=== PATIENT | female | born 2000 | race Caucasian/White ===

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

== ENCOUNTER → 2020-01-10 11:18 | Outpatient (CLI) | payer BC, SELFPAY ==
[2020-01-10 15:14] LABS: Urine N gonorrhoeae NOT DETECTED
[2020-01-10 15:15] LABS: Urine Chlamydia NOT DETECTED
== END ==
PROVIDERS: PCP Family Medicine; Visit Provider Family Medicine
DX: Z11.3 Encounter for screening for infections with a predominantly sexual mode of transmission (principal); Z11.8 Encounter for screening for other infectious and parasitic diseases
CPT/HCPCS: 87491; 87591

== ENCOUNTER → 2020-04-16 14:39 | Outpatient (CLI) | payer BC, SELFPAY | PROVIDERS: PCP Family Medicine; Visit Provider Family Medicine | DX: R30.0 Dysuria (principal); R82.90 Unspecified abnormal findings in urine | CPT/HCPCS: 87077; 87086; 87186 ==

== ENCOUNTER → 2020-04-18 09:32 | Outpatient (CLI) | payer BC, SELFPAY ==
[2020-04-18 10:58] LABS: COVID19 -Nasal RAPID Negative (Negative)
== END ==
PROVIDERS: PCP Family Medicine; Visit Provider Nurse Practitioner Family
DX: Z20.828 Contact with and (suspected) exposure to other viral communicable diseases (principal); R51.9 Headache, unspecified
CPT/HCPCS: 87635

== ENCOUNTER 2020-11-01 12:34 | Emergency (ER) | payer BC, SELFPAY ==
[2020-11-01 12:55] VITALS: BP 103/73; PULSE 84; RESP 18; TEMP 36.4; O2SAT 100; BMI 29.9
--- NOTE | 2020-11-01 12:58 | DI.RAD.S_ITS ---
PROCEDURE: XR TOE RT MIN 2V INDICATIONS: crush injury TECHNIQUE: 3 views of the 4th toe(s) acquired. COMPARISON: None. FINDINGS: Bones: No fractures or dislocations. No suspicious bony lesions. Soft tissues: No suspicious soft tissue densities. IMPRESSION: No definitive fractures. If clinical symptoms persist or clinical suspicion for pathology is high, a repeat examination in 7-10 days, or advanced imaging such as CT or MRI is suggested for further evaluation. Dictated by: Eric Antonio M.D. on 11/01/2020 at 14:04 Approved by: Eric Antonio M.D. on 11/01/2020 at 14:06
--- NOTE | 2020-11-01 17:29 | PC.NURSE ---
bruising noted to rt 4th toe.
--- NOTE | 2020-11-01 18:57 | ED.LOWEXIN ---
HPI - Extremity Injury (Lower) <Sarah Fraga PA-C - Last Filed: 11/01/20 19:18> General Chief Complaint: Extremity Injury, Lower Stated Complaint: broken toes on right foot Time Seen by Provider: 11/01/20 16:15 Source: patient Mode of arrival: Ambulatory Limitations: no limitations History of Present Illness HPI Narrative: 20-year-old female without past medical history who presents to clinic complaining of right 4th toe pain after accidentally dropping a bookshelf onto her toe today. She states that she then accidentally stubbed the same toe as well on the couch. She has been ambulatory but reports pain with ambulation. Notes immediate swelling to the 4th toe. Denies numbness, tingling, or additional injury. Related Data Previous Rx's Medication Instructions Recorded hydroxyzine HCl 25 mg tablet 25 mg PO BID PRN #30 tab 09/23/19 dextroamphetamine-amphetamine ER 30 cap PO QAM #30 cap 03/08/20 30 mg 24hr capsule,extend release (Adderall XR) norethindrone acetate 1 mg-ethinyl 1 tab PO QDAY #63 tab 05/03/20 estradiol 20 mcg tablet (Loestrin) sertraline 100 mg tablet 150 mg PO DAILY #135 tab 05/07/20 Allergies Allergy/AdvReac Type Severity Reaction Status Date / Time No Known Drug Allergies Allergy Verified 07/30/20 07:23 Review of Systems <Sarah Fraga PA-C - Last Filed: 11/01/20 19:18> Review of Systems Narrative: General: denies fever, chills Head/Neck: denies head trauma, neck pain Respiratory: denies shortness of breath, cough MSK: denies joint pain, back pain, muscle weakness Skin: Denies rash, laceration Neuro: denies LOC, numbness, weakness, loss of sensory/motor function Patient History <Sarah Fraga PA-C - Last Filed: 11/01/20 19:18> Medical History Generalized anxiety disorder Major depression Migraine Paronychia of finger Family History Other Congestive heart failure Depression Hypertension Social History Smoking Status: Never smoker substance use type: marijuana (Former smoker) Smoking Status: Never smoker alcohol intake frequency: 0-2 drinks per day Substance Use Type: marijuana Exam <Sarah Fraga PA-C - Last Filed: 11/01/20 19:18> Narrative Exam Narrative: Independently reviewed vitals signs and nursing notes. General: Awake, alert, nontoxic, no cardiorespiratory distress Head/Neck: Atraumatic, neck full range of motion Eyes: EOMI, conjunctiva normal Nose: nares patent, no rhinorrhea Cardio: Regular rate and rhythm, no peripheral edema Respiratory: Respirations unlabored without wheezing, stridor, or rales. No retractions. MSK: Ecchymosis and swelling to the right 4th toe. Limited range of motion secondary to pain. Neurovascularly intact. Skin: Normal capillary refill, no rash Neuro: Normal speech and cognition, normal gait Initial Vital Signs Initial Vital Signs: Vital Signs Temperature 97.5 F L 11/01/20 12:55 Pulse Rate 84 11/01/20 12:55 Respiratory Rate 18 11/01/20 12:55 Blood Pressure 103/73 11/01/20 12:55 Pulse Oximetry 100 11/01/20 12:55 <Luna Amado DO - Last Filed: 11/05/20 08:54> Initial Vital Signs Initial Vital Signs: Vital Signs Temperature 97.5 F L 11/01/20 12:55 Pulse Rate 84 11/01/20 12:55 Respiratory Rate 18 11/01/20 12:55 Blood Pressure 103/73 11/01/20 12:55 Pulse Oximetry 100 11/01/20 12:55 Course <Sarah Fraga PA-C - Last Filed: 11/01/20 19:18> Orders Ordered: ED Orders 11/01/20 12:58 XR toe RT min 2V Stat Vital Signs Vital signs: Vital Signs - 8 hr 11/01/20 12:55 Temperature 97.5 F L Pulse Rate 84 Respiratory Rate 18 Blood Pressure 103/73 Pulse Oximetry 100 <DO Africa Brito Last Filed: 11/05/20 08:54> Orders Ordered: ED Orders 11/01/20 12:58 XR toe RT min 2V Stat Vital Signs Vital signs: Vital Signs - 8 hr 11/01/20 12:55 Temperature 97.5 F L Pulse Rate 84 Respiratory Rate 18 Blood Pressure 103/73 Pulse Oximetry 100 [facility] - Extremity Injury (Lower) <Sarah Fraga PA-C - Last Filed: 11/01/20 19:18> Imaging Data Extremity x-ray #1: Radiologist's Impression: PROCEDURE: XR TOE RT MIN 2V INDICATIONS: crush injury TECHNIQUE: 3 views of the 4th toe(s) acquired. COMPARISON: None. FINDINGS: Bones: No fractures or dislocations. No suspicious bony lesions. Soft tissues: No suspicious soft tissue densities. IMPRESSION: No definitive fractures. If clinical symptoms persist or clinical suspicion for pathology is high, a repeat examination in 7-10 days, or advanced imaging such as CT or MRI is suggested for further evaluation. Dictated by: Eric Antonio M.D. on 11/01/2020 at 14:04 Approved by: Eric Antonio M.D. on 11/01/2020 at 14:06 [facility] Narrative Medical decision making narrative: Presentation most consistent with contusion/soft tissue injury of the right 4th toe. No evidence of fracture, septic arthritis, or neurovascular deficit. X-ray performed today; results without fracture. Post injury care to include rest, ice, compression, and elevation of the injured area. Begin 5-7 day course of anti-inflammatory medication (Motrin or Aleve) for pain/inflammation. Discussed weight-bearing as tolerated. Postop shoe provided at today's visit. Follow-up with PCP or specialist as directed. Return to clinic/ER instructions discussed for new or worsening symptoms. Discharge Plan Departure Patient Disposition: Home Clinical Impression: Contusion of toe of right foot Qualifiers: Encounter type: initial encounter Toe: unspecified toe Qualified Code(s): S90.121A - Contusion of right lesser toe(s) without damage to nail, initial encounter Instructions: Contusion Prescriptions: No Action norethindrone ac-eth estradiol [Loestrin 05/16 ()] 1-20 mg-mcg tablet 1 tab PO QDAY Qty: 63 RF: 3 hydroxyzine HCl 25 mg tablet 25 mg PO BID PRN (Reason: anxiety) Qty: 30 RF: 0 dextroamphetamine-amphetamine [Adderall XR] 30 mg capsule,extended release 24hr 30 cap PO QAM Qty: 30 RF: 0 sertraline 100 mg tablet 150 mg PO DAILY Qty: 135 RF: 1 Referrals: Adelita Dove DO [Primary Care Provider] - <Luna Amado DO - Last Filed: 11/05/20 08:54> Cosign ED Attending [place] Attestation: I was immediately available in the department for consultation. Documentation has been reviewed.
== END 2020-11-01 17:12 | disposition home or self-care (01) ==
PROVIDERS: Emergency Provider Physician Assistant; PCP Family Medicine
DX: S90.121A Contusion of right lesser toe(s) without damage to nail, initial encounter (principal); W22.8XXA Striking against or struck by other objects, initial encounter
CPT/HCPCS: 73660; 99283

== ENCOUNTER → 2020-12-10 15:29 | Outpatient (CLI) | payer BC, SELFPAY | PROVIDERS: PCP Family Medicine; Visit Provider Family Medicine | DX: R30.0 Dysuria (principal) | CPT/HCPCS: 87077; 87086; 87186 ==

== ENCOUNTER → 2021-04-15 11:39 | Outpatient (CLI) | payer BC, SELFPAY ==
[2021-04-15 13:21] LABS: COVID19 -Nasal RAPID Negative (Negative)
== END ==
PROVIDERS: PCP Family Medicine; Visit Provider Physician Assistant
DX: Z20.822 Contact with and (suspected) exposure to COVID-19 (principal); R09.89 Other specified symptoms and signs involving the circulatory and respiratory systems; J02.9 Acute pharyngitis, unspecified
CPT/HCPCS: 87635

== ENCOUNTER → 2021-09-07 10:26 | Outpatient (CLI) | payer BC, SELFPAY | PROVIDERS: PCP Family Medicine; Referring Provider Nurse Practitioner Critical Care Medicine; Visit Provider Nurse Practitioner Critical Care Medicine | DX: M54.9 Dorsalgia, unspecified (principal) | CPT/HCPCS: 87086 ==

== ENCOUNTER → 2024-05-13 11:45 | Outpatient (CLI) | payer OTHER, SELFPAY ==
[2024-05-14 13:36] LABS: Candida species Positive (Negative); Gardnerella vaginalis Positive (Negative); Trichomoas vaginalis Negative (Negative)
== END ==
PROVIDERS: PCP Family Medicine; Referring Provider Student in an Organized Health Care Education/Training Program; Visit Provider Student in an Organized Health Care Education/Training Program
DX: N89.8 Other specified noninflammatory disorders of vagina (principal)
CPT/HCPCS: 87480; 87510; 87660

== ENCOUNTER → 2025-04-09 09:47 | Outpatient (CLI) | payer OTHER, SELFPAY | PROVIDERS: Visit Provider Nurse Practitioner Family | DX: R30.0 Dysuria (principal) | CPT/HCPCS: 87086; 87210 ==